=== PATIENT | male | born 1980 | race Caucasian/White ===

== ENCOUNTER 2019-05-08 23:35 | Emergency (ER) | payer MEDICAID ==
[~2019-05-08] VITALS: Ht 182.9 cm; Wt 226.8 kg
[2019-05-08 23:37] VITALS: BP 139/83
--- NOTE | 2019-05-08 23:48 | NUR ---
PT AMBULATED TO BED #11.
--- NOTE | 2019-05-08 23:50 | NUR ---
FLU SWAB DONE AND SENT TO LAB
--- NOTE | 2019-05-09 00:12 | NUR ---
38 Y/O MALE PRESENTS TO ED, C/O CHEST PAIN 12/29. PT STATES PAIN STARTED THIS MORNING ALONG WITH CONGESTION. PAIN DOES NOT RADIATE. PT LUNG SOUNDS BILAT CLEAR. NO SIGNS OF SOB/DIFFICULTY BREATHING NOTED. PT DENIES ANY HEADACHE OR DIZZINESS. PT VSS. ERMD AWARE. WILL CONTINUE TO MONITOR.
[2019-05-09] MEDS ORDERED: TETRACAINE HCL/PF 0.5% OPTH 4 ML BTL OP ONE (00:20)
[2019-05-09] MEDS ORDERED: FLUORESCEIN OPTH STRIP 1 MG OP ONE (00:20)
[2019-05-09] MEDS ORDERED: ALBUTEROL SULFATE/IPRATROPIU 3 ML SOL IH ONE (00:20)
[2019-05-09] MEDS ORDERED: ACETAMIN/CODEINE 120/12MG-5ML 5 ML UDC PO ONE (00:20)
[2019-05-09] MEDS ORDERED: KETOROLAC 60 MG/2 ML VIAL IM ONE (00:20)
[2019-05-09 01:22] VITALS: BP 109/69
--- NOTE | 2019-05-09 01:22 | NUR ---
PT DISCHARGED WITH PAPERWORK. EDUCATED PT REGARDING D/C DIAGNOSIS AND MEDICATIONS. PT VERBALIZED UNDERSTANDING. TOLD PT TO FOLLOW UP WITH PCP AND WHEN TO RETURN TO ED. PT VSS. ALL QUESTIONS ANSWERED.
== END 2019-05-09 01:22 | disposition home or self-care (01) ==
LOC: MED 23:35
DX: S05.01XA Injury of conjunctiva and corneal abrasion without foreign body, right eye, initial encounter (principal); J10.1 Influenza due to other identified influenza virus with other respiratory manifestations; H11.31 Conjunctival hemorrhage, right eye; E11.9 Type 2 diabetes mellitus without complications; F17.210 Nicotine dependence, cigarettes, uncomplicated; Z98.890 Other specified postprocedural states; Z71.6 Tobacco abuse counseling; X58.XXXA Exposure to other specified factors, initial encounter; Y93.89 Activity, other specified; Y92.89 Other specified places as the place of occurrence of the external cause; Y99.8 Other external cause status
CPT/HCPCS: 71045; 87804; 93005; 96372; 99284; J1885; J7620; Q0092